=== PATIENT | male | born 1985 | race Two or more races ===

== ENCOUNTER 2017-01-28 06:51 | Inpatient (IN) | payer MEDICAID ==
[~2017-01-28] VITALS: Ht 175.3 cm; Wt 76.8 kg
[2017-01-28 11:30] VITALS: BP 118/66
--- NOTE | 2017-01-28 11:30 | NUR ---
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
[2017-01-28 12:00] VITALS: BP 118/66
[2017-01-28] MEDS ORDERED: ONDANSETRON HCL/PF 4 MG/2 ML VIAL IVP PRN (14:30)
[2017-01-28] MEDS ORDERED: MAGNESIUM HYDROXIDE 30 ML UDC PO PRN (14:30)
[2017-01-28] MEDS ORDERED: HYDROCODONE/APAP 5/325MG 1 EACH TABLET PO PRN (14:30)
[2017-01-28] MEDS ORDERED: ACETAMINOPHEN 325 MG TABLET PO PRN (14:30)
[2017-01-28] MEDS ORDERED: ZOLPIDEM TARTRATE 5 MG TABLET PO PRN (14:30)
[2017-01-28] MEDS ORDERED: MAG HYDROX/AL HYDROX/SIMETH 30 ML UDC PO PRN (14:30)
[2017-01-28] MEDS ORDERED: Z GUARD REMEDY 2 OZ OINT TP PRN (14:30)
[2017-01-28 15:29] LABS: CALCIUM, SERUM 8.8 mg/dL (8.5-10.1); CREATININE 0.8 mg/dL (0.6-1.3); POTASSIUM 3.5 mmol/L (3.5-5.1)
[2017-01-28] MEDS ORDERED: CEFTRIAXONE 1 G in IV D5W 50 ML IV SCH (15:30)
[2017-01-28] MEDS ORDERED: ENOXAPARIN SODIUM 40 MG/0.4 ML DISP.SYRIN SQ SCH (15:30)
[2017-01-28 15:39] LABS: BILIRUBIN,DIRECT 0.2 mg/dL (0.0-0.2); BILIRUBIN,TOTAL 1.3 mg/dL (0.2-1.0); MAGNESIUM 1.7 mg/dL (1.8-2.4); TOTAL PROTEIN, SERUM 7.3 g/dL (6.4-8.2)
[2017-01-28] MEDS ORDERED: SECONDARY IV SET 1 EA INFUS.SET MC ONE ×2 (15:47→17:03)
[2017-01-28] MEDS ORDERED: IV SET PRIMARY PUMP SET 1 EA INFUS.SET MC ONE (15:48)
[2017-01-28] MEDS: IV NS 0.9% 1,000 ML IV PRN (15:52)
[2017-01-28 16:00] VITALS: BP 118/62
[2017-01-28] MEDS: Magnesium 1GM/D5W 100ML PREMIX 100 ML IV SCH ×2 (17:10→18:13)
--- NOTE | 2017-01-28 18:22 | NUR ---
RN MS NOTES PT IN BED, AWAKE, ALERT AND ORIENTED, WATCHING TV, FAMILY AT BEDSIDE, NO COMPLAINT OF PAIN, RESPIRATIONS NORMAL AND NOT LABORED, SEEN BY DR. DIAZ, IV FLUIDS INFUSING WELL, PLAN OF CARE DISCUSSED WITH PT, VERBALIZED UNDERSTANDING, US OF ABDOMEN DONE, AWAITING RESULTS.
--- NOTE | 2017-01-28 19:40 | NUR ---
MS RN NOTES RECEIVED PT IN BED, AWAKE, A/O X 4. FAMILY AT BED SIDE. VERBALLY RESPONSIVE. NO DISTRESS, NO SOB NOTED. RESPIRATION IS EVEN AND UNLABORED. ABDOMEN IS SOFT AND NON DISTENDED. DENIES ABDOMINAL PAIN AT THIS TIME. LAC IV IS INTACT AND PATENT, NO S/S OF INFILTRATION NOTED. IVF INFUSING WELL. DENIES ANY PAIN OR DISCOMFORT AT THIS TIME. SKIN IS INTACT. ON NPO, PT VERBALIZED UNDERSTANDING. ALL NEEDS ATTENDED. CALL LIGHT WITHIN REACH. WILL CONT TO MONITOR.
[2017-01-28 20:00] VITALS: BP 116/79
[2017-01-28 22:00] VITALS: BP 116/79
--- NOTE | 2017-01-29 00:45 | NUR ---
PT IN BED, SLEEPING AT THIS TIME, AROUSES EASILY. NO DISTRESS. PT IS STABLE.DENIES ANY PAIN AT THIS TIME. CALL LIGHT WITHIN REACH. WILL CONT TO MONITOR.
[2017-01-29 06:38] LABS: BASOPHILS % (AUTO) 0.2 % (0.0-2.0); EOSINOPHILS # (AUTO) 0.2 /CMM (0.0-0.7); EOSINOPHILS % (AUTO) 2.6 % (0.0-6.0); HEMATOCRIT 42 % (39-51); HEMOGLOBIN 14.4 g/dL (13.5-17.5); LYMPHOCYTES # (AUTO) 1.3 /CMM (0.8-4.8); LYMPHOCYTES % (AUTO) 20.6 % (20.0-44.0); MEAN CORPUSCULAR HEMOGLOBIN 28 PG (26.0-33.0); MEAN CORPUSCULAR HGB CONC 35 g/dl (31.0-36.0); MEAN CORPUSCULAR VOLUME 82 fL (80-96); MONOCYTES # (AUTO) 0.4 /CMM (0.1-1.30); MONOCYTES % (AUTO) 6.1 % (2.0-12.0); NEUTROPHILS # (AUTO) 4.4 /CMM (1.8-8.9); NEUTROPHILS % (AUTO) 70.5 % (43.0-81.0); PLATELET COUNT (AUTO) 159 /CMM (150-450); RED BLOOD CELL COUNT(AUTO) 5.07 MIL/uL (4.5-6.0); WHITE BLOOD COUNT (AUTO) 6.3 K/uL (4.3-11.0)
--- NOTE | 2017-01-29 06:58 | NUR ---
MS RN NOTES PT IN BED, AWAKE, A/O X 4. RSETING COMFORTABLY AT THIS TIME, AROUSES EASILY. VERBALLY RESPONSIVE. NO DISTRESS, NO SOB NOTED. RESPIRATION IS EVEN AND UNLABORED. ABDOMEN IS SOFT AND NON DISTENDED. DENIES ABDOMINAL PAIN AT THIS TIME. LAC IV IS INTACT AND PATENT, NO S/S OF INFILTRATION NOTED. IVF INFUSING WELL. DENIES ANY PAIN OR DISCOMFORT AT THIS TIME. SKIN IS INTACT. ON NPO, PT VERBALIZED UNDERSTANDING. ALL NEEDS ATTENDED. CALL LIGHT WITHIN REACH. WILL ENDORSE TO NEXT SHIFT FOR MARISA.
[2017-01-29 07:04] LABS: CALCIUM, SERUM 8.6 mg/dL (8.5-10.1); CREATININE 0.9 mg/dL (0.6-1.3); MAGNESIUM 1.8 mg/dL (1.8-2.4); PHOSPHORUS 3.9 mg/dL (2.5-4.9); POTASSIUM 3.8 mmol/L (3.5-5.1)
[2017-01-29] MEDS: IV NS 0.9% 1,000 ML IV PRN (07:07)
--- NOTE | 2017-01-29 07:25 | NUR ---
RN MS NOTES PATIENT ALERT AND ORIENTED, DENIES PAIN, NO S/SX OF DISTRESS NOTED, NEEDS ATTENDED AND MET, SAFETY MEASURES IN PLACED, CALL LIGHT WITHIN REACH, WILL CONTINUE TO MONITOR.
[2017-01-29] MEDS ORDERED: PANTOPRAZOLE 40 MG TABLET.DR PO SCH (07:30)
[2017-01-29 08:00] VITALS: BP 116/54
--- NOTE | 2017-01-29 14:30 | NUR ---
RN MS NOTES PATIENT TOLERATED REGULAR DIET, DENIES PAIN AT THIS TIME, RECEIVED ORDER FOR DISCHARGE FROM DR. DIAZ. ORDER NOTED AND CARRIED OUT.
--- NOTE | 2017-01-29 14:45 | NUR ---
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 LEFT THE FACILITY AT 1445.
== END 2017-01-29 14:45 | disposition home or self-care (01) ==
LOC: MEDSG2 11:14
PROVIDERS: ADMIT Internal Medicine; ATTEND Internal Medicine
DX: K81.9 Cholecystitis, unspecified (principal); E83.42 Hypomagnesemia; K29.70 Gastritis, unspecified, without bleeding
CPT/HCPCS: 36415; 76700-TC; 80048-TC; 80061-TC; 80076-TC; 83735-TC; 84100-TC; 85025-TC; 87081-TC; J0696; J1650; J3475; J7030; J7060; Z7610